=== PATIENT | male | born 1955 | race Caucasian/White ===

== ENCOUNTER 2016-05-23 05:53 | Emergency (ER) | payer BC ==
[2016-05-23 07:11] LABS: HEMOGLOBIN 15.3 gm/dl (14.0-17.5); RED BLOOD COUNT 4.88 M/UL (4.20-5.50); WHITE BLOOD COUNT 6.8 K/UL (4.5-11.0)
[2016-05-23 07:34] LABS: BUN/CREATININE RATIO 17 (0-10)
== END 2016-05-23 09:50 | disposition home or self-care (01) ==
LOC: ER1 05:53
PROVIDERS: Physician Assistant
DX: J44.9 Chronic obstructive pulmonary disease, unspecified (principal); F17.210 Nicotine dependence, cigarettes, uncomplicated; Z79.82 Long term (current) use of aspirin
CPT/HCPCS: 36415; 71010; 80053; 82550; 82553; 83874; 83880; 84484; 85025; 93005; 94640; 94664; 96374; 99284; J2930

== ENCOUNTER → 2020-11-01 | Outpatient (CLI) | payer MEDICARE, BC ==
[~2020-11-01] MED LIST: DOXYCYCLINE HY100 M2 PO; IPRAT-ALBUT 0.5-3 ML INH; PREDNISONE 50 M50 MG PO
[2020-11-01 10:06] LABS: BUN/CREATININE RATIO 16 (0-10)
== END ==
LOC: LAB 09:19
PROVIDERS: Internal Medicine Interventional Cardiology
DX: R00.2 Palpitations (principal); R01.1 Cardiac murmur, unspecified; R06.02 Shortness of breath; E78.2 Mixed hyperlipidemia; R60.0 Localized edema; Z87.891 Personal history of nicotine dependence
CPT/HCPCS: 36415; 80048; 80061; 80076; 83735

== ENCOUNTER → 2020-12-24 | Day surgery (SDC) | payer MEDICARE, BC ==
[~2020-12-24] MED LIST changes: +CELEBREX 200MG200 MG PO; +COZAAR 50MG TAB50 MG PO; +CRESTOR10 MG PO; +HYDROCHLOROTH12.5 M1 PO; +HYGROTON TAB 2525 MG PO
== END | disposition home or self-care (01) ==
LOC: OR 06:28
DX: Z12.11 Encounter for screening for malignant neoplasm of colon (principal); K57.30 Diverticulosis of large intestine without perforation or abscess without bleeding; I10 Essential (primary) hypertension; M19.90 Unspecified osteoarthritis, unspecified site; Z87.891 Personal history of nicotine dependence; Z79.899 Other long term (current) drug therapy
CPT/HCPCS: J2704; J7040; J7120

== ENCOUNTER → 2021-04-23 | Outpatient (CLI) | payer MEDICARE, BC ==
[~2021-04-23] MED LIST changes: +BENICAR20 MG PO
[2021-04-23 12:37] LABS: HEMOGLOBIN 15.1 gm/dl (14.0-17.5); RED BLOOD COUNT 4.77 M/UL (4.20-5.50)
== END ==
LOC: EDSTATUS 11:00 → OPSV2 11:00
PROVIDERS: Orthopaedic Surgery
DX: Z01.818 Encounter for other preprocedural examination (principal); M17.11 Unilateral primary osteoarthritis, right knee; I45.10 Unspecified right bundle-branch block; R94.31 Abnormal electrocardiogram [ECG] [EKG]
CPT/HCPCS: 36415; 80048; 85025; 93005

== ENCOUNTER → 2021-05-06 | Outpatient (CLI) | payer MEDICARE, BC ==
[~2021-05-06] MED LIST changes: +ADULT LOW DOSE81 MG PO; +ENDOCET 7.5-321 EACH PO; +ZUPLENZ4 MG PO
== END ==
LOC: LAB 10:10
PROVIDERS: Orthopaedic Surgery
DX: Z01.812 Encounter for preprocedural laboratory examination (principal)
CPT/HCPCS: 36415; 80048; 86850; 86900; 86901

== ENCOUNTER → 2021-05-07 | Day surgery (SDC) | payer MEDICARE, BC ==
[~2021-05-07] VITALS: Ht 182.9 cm; Wt 112.5 kg
== END | disposition home or self-care (01) ==
LOC: OR 05:27 → EDSTATUS 07:30
DX: M17.11 Unilateral primary osteoarthritis, right knee (principal); G89.18 Other acute postprocedural pain; I10 Essential (primary) hypertension; J44.9 Chronic obstructive pulmonary disease, unspecified; J45.909 Unspecified asthma, uncomplicated; Z87.891 Personal history of nicotine dependence; Z79.899 Other long term (current) drug therapy
CPT/HCPCS: 73560; 97116; 97161; 97166; C1713; C1776; J0592; J0690; J1100; J2250; J2405; J2704; J2710; J2795; J3010; J3370; J7120

== ENCOUNTER → 2021-06-29 | Outpatient (CLI) | payer MEDICARE, BC | LOC: EXRD 11:00 | DX: N17.9 Acute kidney failure, unspecified (principal); N28.1 Cyst of kidney, acquired | CPT/HCPCS: 76775 ==